=== PATIENT | male | born 1960 | race Caucasian/White ===

== ENCOUNTER 2018-01-11 08:10 | Emergency (ER) | payer OTHER, SELFPAY ==
[2018-01-11] VITALS (7 sets, daily range): BP systolic 116–172; BP diastolic 50–67; PULSE 54–68; RESP 14–18; TEMP 36.4; O2SAT 2–100; BMI 37.3
--- NOTE | 2018-01-11 08:30 | DI.RAD.S_ITS ---
PROCEDURE: XR CHEST 1V INDICATIONS: weakness, chest pain equivalents TECHNIQUE: One view of the chest was acquired. COMPARISON: [facility], CHEST 1 VIEW, 07/03/2014, 8:47. [facility], CHEST 1 VIEW, 01/12/2014, 17:12. [facility], , CHEST 1 VIEW, 10/25/2012, 7:52. FINDINGS: Surgical changes and devices: None. Lungs and pleura: No pleural effusions or pneumothorax. Lungs are clear considering reduced inspiratory volume. Mediastinum: Mediastinal contours appear normal. Heart size is normal. Bones and chest wall: No suspicious bony lesions. Overlying soft tissues appear unremarkable. IMPRESSION: Reduced inspiratory volume, no pneumonia found, source of current symptoms is not identified. Dictated by: Real Cornelius M.D. on 01/11/2018 at 8:45 Approved by: Real Cornelius M.D. on 01/11/2018 at 8:45
[2018-01-11 08:36] LABS: Add Manual Diff / Slide Review NO; Basophils Percent Auto 0.8 % (0-2); Eosinophils Percent Auto 4.9 % (2-4); Hematocrit 41.1 % (41-53); Lymphocytes Percent Auto 18.1 % (25-40); Mean Corpuscular HGB Conc 34.1 % (30-36); Mean Corpuscular Volume 93.7 fL (80-100); Monocytes Percent Auto 6.8 % (3-14); Neutrophils Absolute Auto 5700 /uL (3000-5900); Neutrophils Percent Auto 69.4 % (50-75); Platelet Count 290 X10^3/uL (150-400); Red Blood Cell Count 4.39 X10^6/uL (4.5-5.9); White Blood Cell Count 8.3 X10^3/uL (4.5-11.0)
[2018-01-11 08:44] LABS: Alanine Aminotransferase 23 IU/L (21-72); Albumin 4.7 g/dL (3.5-5.0); Albumin Globulin Ratio 1.3 (1.0-2.8); Alkaline Phosphatase 71 U/L (38-126); Aspartate Aminotransferase 51 IU/L (17-59); BUN Creatinine Ratio 20.8 (6-22); Bilirubin Total 0.7 mg/dL (0.2-1.3); Blood Urea Nitrogen 27 mg/dL (9-20); Calcium 9.9 mg/dL (8.4-10.2); Carbon Dioxide 26 mmol/L (22-32); Chloride 103 mmol/L (98-107); Creatine Kinase 248 U/L (55-170); Estimated Glomerular Filt Rate 56.5 mL/min (>60); Globulin 3.5 g/dL (1.7-4.1); Glucose 129 mg/dL (70-100); Lipase 159 U/L (23-300); Potassium 5.7 mmol/L (3.4-5.1); Sodium 140 mmol/L (137-145); Total Protein 8.2 g/dL (6.3-8.2)
--- NOTE | 2018-01-11 08:50 | ED.DIZZY ---
HPI - Dizziness General Chief Complaint: Dizziness Stated Complaint: Nausea Time Seen by Provider: 01/11/18 08:30 Source: patient Mode of arrival: ambulatory Limitations: no limitations History of Present Illness HPI Narrative: 57-year-old male known well to myself presents to the emergency department with a chief complaint of dizziness, lightheadedness, feeling shaky and nauseated this morning. He denies any chest pain or shortness of breath. He had a dental procedure yesterday and required some anesthesia, antibiotics and pain meds. He denies any other changes in his medication regimen. He felt fine yesterday. MD complaint: dizziness, lightheadedness and near syncope Onset (ago): minute(s) Timing: sudden onset Description: lightheadedness History of similar episodes: Yes History of trauma: No Severity: moderate Relieving factors: nothing Exacerbating factors: nothing Associated symptoms: denies other symptoms Related Data Home Medications Medication Instructions Recorded Confirmed Qvar RediHaler 2 puff INHALATION BID PRN 01/11/18 01/11/18 Zantac 1 tab PO PRN PRN 01/11/18 01/11/18 albuterol sulfate 2 puff INHALATION PRN PRN 01/11/18 01/11/18 ascorbic acid (vitamin C) [Vitamin 1 tab PO BID 01/11/18 01/11/18 C] aspirin 81 mg PO DAILY 01/11/18 01/11/18 diltiazem HCl [Cardizem CD] 180 mg PO BEDTIME 01/11/18 01/11/18 epinephrine [EpiPen] 0.3 ml IM PRN PRN 01/11/18 01/11/18 flecainide 150 mg PO BID 01/11/18 01/11/18 fluticasone [Flonase Allergy 2 spray INTRANASAL DAILY PRN 01/11/18 01/11/18 Relief] hydrochlorothiazide 12.5 mg PO DAILY 01/11/18 01/11/18 lisinopril 20 mg PO BID 01/11/18 01/11/18 lorazepam 1 tab PO PRN PRN 01/11/18 01/11/18 magnesium chloride [Slow-Mag] 1 tab PO BID 01/11/18 01/11/18 multivitamin 1 tab PO DAILY 01/11/18 01/11/18 ondansetron HCl [Zofran] 4 mg PO PRN PRN 01/11/18 01/11/18 potassium chloride 20 meq PO BID 01/11/18 01/11/18 scopolamine base 1 patch TOPICAL PRN PRN 01/11/18 01/11/18 spironolactone 12.5 mg PO DAILY 01/11/18 01/11/18 testosterone [AndroGel] 1 dose TOPICAL Q OTHER DAY 01/11/18 01/11/18 Previous Rx's Medication Instructions Recorded ondansetron [Zofran ODT] 4 mg PO Q6H PRN #14 tab 01/11/18 Allergies Allergy/AdvReac Type Severity Reaction Status Date / Time bee pollen [BEE POLLEN] Allergy Intermediate Unverified 09/07/17 12:12 metoclopramide [From REGLAN] Allergy Unknown Unverified 09/07/17 12:12 prochlorperazine Allergy Unknown Unverified 09/07/17 12:12 [From COMPAZINE] Review of Systems Review of Systems All systems reviewed & are unremarkable except as noted in HPI and below Constitutional Denies chills, Denies fever(s), Denies lethargy and Denies weakness Eyes Denies change in vision, Denies eye discharge, Denies irritation and Denies loss of vision ENT Ears, Nose, Mouth, and Throat: Denies change in voice, Denies neck pain and Denies sore throat Cardiovascular Denies chest pain, Denies irregular heart rhythm, Reports lightheadedness, Denies palpitations, Reports dyspnea, Denies dyspnea on exertion and Denies orthopnea Respiratory Denies cough, Reports dyspnea, Denies dyspnea on exertion and Denies wheezing Gastrointestinal Gastrointestinal: Denies abdominal pain, Denies change in bowel habits, Denies diarrhea, Reports nausea and Denies vomiting Genitourinary Denies hematuria, Denies flank pain, Denies urinary incontinence and Denies urinary urgency Musculoskeletal Denies neck pain Integumentary/Breasts Denies pruritus, Denies erythema, Denies rash and Denies wounds Neurologic Denies confusion, Denies loss of vision and Denies weakness Psychiatric Denies anxiety, Denies confusion, Denies depression, Denies homicidal ideation and Denies suicidal ideation Endocrine Denies palpitations Hematologic/Lymphatic Denies easy bruising Allergic/Immunologic Denies wheezing PFSH Medical History Asthma (Acute) Atrial fibrillation (Acute) HTN (hypertension) (Acute) Osteomyelitis, jaw chronic (Acute) PTSD (post-traumatic stress disorder) (Acute) Social History Smoking Status: Never smoker Exam Narrative Exam Narrative: A 57-year-old obese male obviously feeling on well. He is visibly shaken and mildly diaphoretic, clutching an emesis bag Initial Vital Signs Initial Vital Signs: Vital Signs Temperature 97.6 F 01/11/18 08:30 Pulse Rate 68 01/11/18 08:30 Respiratory Rate 14 01/11/18 08:30 Blood Pressure 172/67 H 01/11/18 08:30 Pulse Oximetry 98 01/11/18 08:30 Const General: cooperative, well developed and acute distress Nutritional Appearance: overweight Orientation: alert, awake, oriented x3 and not confused HENMT Head: normocephalic and atraumatic Ears: external ears normal and TM's normal bilaterally Nose: external nose normal and No nasal discharge Face and sinus: sinuses nontender, face symmetric, no sinus tenderness and No dry mucous membranes Mouth: oral mucosae normal and moist mucous membranes Teeth and gingiva: dentition normal Throat: tonsils normal and uvula midline Eyes General: appearance normal, both eyes and all related structures Eyelids: eyelids normal Conjunctivae: conjunctivae normal Sclera: sclerae normal Pupils: PERRL EOM: EOM intact bilaterally Neck Neck: normal visual inspection, trachea midline, No lymphadenopathy, No midline deformity and No JVD Lymphatic: No lymphedema Chest Chest: normal inspection of the chest Resp Effort & Inspection: normal respiratory effort, able to speak in complete sentences, no respiratory distress and no use of accessory muscles Auscultation: clear to auscultation bilaterally, no rales, no rhonchi and no wheezes Cardio Rate: regular rate Rhythm: regular rhythm Heart Sounds: no click, no gallops, no murmurs and no rubs Pulses: normal peripheral pulses GI Inspection: non-distended Palpation: soft, no hepatosplenomegaly, No guarding, No pulsatile mass and No tender Auscultation: normal bowel sounds Back/Spine/Pelvis Back: No CVA tenderness Cervical Spine: cervical ROM normal and No pain with cervical ROM Thoracic/Lumbar Spine: thoracic and lumbar spine normal to inspection Skin General: no rashes or lesions noted, No jaundice and No petechiae Other: mild diaphoresis Neuro General: alert, oriented x3, gait normal and no focal motor deficits Speech: speech normal Extrem General: full ROM, no clubbing, cyanosis or edema, no pedal edema and no calf tenderness Psych Appearance: well kempt Mental Status: mental status grossly normal Mood: anxious mood Attitude: cooperative Thought Content: normal and suicidality Judgment: judgment good Course Orders Ordered: ED Orders 01/11/18 08:15 Complete Blood Count AUTO DIFF Stat Comprehensive Metabolic Panel Stat Lipase Stat Troponin & CK Cardiac Panel Stat 01/11/18 08:30 XR chest 1V Stat EKG-12 Lead Stat 01/11/18 11:15 Potassium Stat Troponin I Stat Sodium Chloride (Normal Saline 0.9%) 1,000 mls @ 150 mls/hr IV CONT MERLIN Last Admin: 01/11/18 12:06 Dose: 500 mls/hr Infusion: 01/11/18 12:06 Dose: 500 mls/hr Infusion: 01/11/18 11:50 Dose: 500 mls/hr Admin: 01/11/18 09:16 Dose: 150 mls/hr Ondansetron HCl (Zofran) 4 mg IV Q4HR PRN PRN Reason: Nausea And Vomiting Last Admin: 01/11/18 09:16 Dose: 4 mg Discontinued Medications Albuterol (Ventolin) 10 mg INH NOW ONE Stop: 01/11/18 09:41 Last Admin: 01/11/18 09:59 Dose: 10 mg Aspirin (Aspirin Chew) 324 mg PO NOW ONE Stop: 01/11/18 08:31 Last Admin: 01/11/18 09:16 Dose: 324 mg Furosemide (Lasix) 40 mg IV NOW ONE Stop: 01/11/18 09:41 Last Admin: 01/11/18 10:00 Dose: 40 mg Sodium Chloride (Normal Saline 0.9%) 1,000 mls @ 500 mls/hr IV BOLUS ONE Stop: 01/11/18 11:40 Reevaluation(s) Reevaluation #1: Patient feeling tremendous relief and near complete resolution of symptoms after above-stated therapies Vital Signs - 8 hr 01/11/18 08:30 01/11/18 09:59 01/11/18 10:03 Temperature 97.6 F Pulse Rate 68 54 L 54 L Respiratory Rate 14 14 14 Blood Pressure 172/67 H Blood Pressure [Left Arm] Pulse Oximetry 98 94 01/11/18 10:45 01/11/18 11:25 Temperature Pulse Rate 63 65 Respiratory Rate 17 18 Blood Pressure Blood Pressure [Left Arm] 121/57 H 116/53 L Pulse Oximetry 100 90 L MDM - Dizziness Lab Data Result diagrams: 01/11/18 08:15 01/11/18 11:15 Lab Results 01/11/18 01/11/18 01/11/18 Range/Units 08:15 08:15 11:15 WBC 8.3 (4.5-11.0) X10^3/uL RBC 4.39 L (4.5-5.9) X10^6/uL Hgb 14.0 (13.5-17.5) g/dL Hct 41.1 (41-53) % MCV 93.7 (80-100) fL MCH 32.0 (26-34) PG MCHC 34.1 (30-36) % RDW 14.0 (11.6-14.8) % Plt Count 290 (150-400) X10^3/uL Neut % (Auto) 69.4 (50-75) % Lymph % (Auto) 18.1 L (25-40) % [place] % (Auto) 6.8 (3-14) % Eos % (Auto) 4.9 H (2-4) % Baso % (Auto) 0.8 (0-2) % Neut # (Auto) 5700 (6432-2346) /uL Sodium 140 (137-145) mmol/L Potassium 5.7 H 4.8 (3.4-5.1) mmol/L Chloride 103 (98-107) mmol/L Carbon Dioxide 26 (22-32) mmol/L BUN 27 H (9-20) mg/dL Creatinine 1.30 H (0.66-1.25) mg/dL Estimated GFR 56.5 L (>60) mL/min BUN/Creatinine Ratio 20.8 (6-22) Glucose 129 H (70-100) mg/dL Calcium 9.9 (8.4-10.2) mg/dL Total Bilirubin 0.7 (0.2-1.3) mg/dL AST 51 (17-59) IU/L ALT 23 (21-72) IU/L Alkaline Phosphatase 71 (38-126) U/L Total Creatine Kinase 248 H (55-170) U/L CK-MB (CK-2) 2.66 H (<2.37) ng/mL CK-MB (CK-2) Rel Index 1.1 L (1.5-5.0) % Troponin I < 0.012 < 0.012 (0.01-0.034) ng/mL Total Protein 8.2 (6.3-8.2) g/dL Albumin 4.7 (3.5-5.0) g/dL Globulin 3.5 (1.7-4.1) g/dL Albumin/Globulin Ratio 1.3 (1.0-2.8) Lipase 159 (23-300) U/L ECG Data Attestation: I personally reviewed and interpreted this ECG as follows: Prior ECG tracings: not available for review Interpretation: Normal sinus rhythm at 76 without evidence of ectopy. No ST elevations or T-wave inversions MDM Narrative Medical decision making narrative: Patient has normal EKG and multiple troponins which have been normal. Patient feels tremendous improvement after some fluids. Most large in significant causes of the way he was feeling this morning have been effectively ruled out raising the question of the potential of multiple small contributors including recent oral surgery, pain medications, fatigue, dehydration, relative anorexia, and hyperkalemia. Discharge Plan Departure Patient Disposition: Home, Self-Care Clinical Impression: Acute hyperkalemia, Nausea Instructions: DI for Hyperkalemia Activity Restrictions/Additional Instructions: *You have been diagnosed with [ acute hyperkalemia with nausea ] *What to do: *Take medications as directed *Follow up with your primary care provider in 2-3 days, call for an appointment. Let them know you were seen in the Emergency Department and that we ask that you be seen in follow up *Return to ER if you should have any new, worsening or concerning symptoms Prescriptions: New ondansetron [Zofran ODT] 4 mg tablet,disintegrating 4 mg PO Q6H PRN (Reason: nausea and vomiting) Qty: 14 RF: 0 No Action ascorbic acid (vitamin C) [Vitamin C] 1,000 mg Tablet 1 tab PO BID RF: 0 flecainide 150 mg Tablet 150 mg PO BID RF: 0 diltiazem HCl [Cardizem CD] 180 mg Capsule,Extended Release 24hr 180 mg PO BEDTIME RF: 0 lisinopril 20 mg Tablet 20 mg PO BID RF: 0 ondansetron HCl [Zofran] 4 mg Tablet 4 mg PO PRN PRN (Reason: Nausea) RF: 0 aspirin 81 mg Tablet,Delayed Release (Dr/Ec) 81 mg PO DAILY RF: 0 spironolactone 25 mg Tablet 12.5 mg PO DAILY RF: 0 lorazepam 1 mg Tablet 1 tab PO PRN PRN (Reason: Anxiety) RF: 0 epinephrine [EpiPen] 0.3 mg/0.3 mL Auto-Injector 0.3 ml IM PRN PRN (Reason: Allergic Reaction) RF: 0 scopolamine base 1 mg over 3 days Patch 3 Day 1 patch Topical PRN PRN (Reason: Dizziness) RF: 0 albuterol sulfate 90 mcg/actuation Hfa Aerosol Inhaler 2 puff Inhalation PRN PRN (Reason: Shortness Of Breath) RF: 0 fluticasone [Flonase Allergy Relief] 50 mcg/actuation [place],Suspension 2 spray Intranasal DAILY PRN (Reason: Allergy Symptoms) RF: 0 hydrochlorothiazide 12.5 mg Tablet 12.5 mg PO DAILY RF: 0 magnesium chloride [Slow-Mag] 71.5 mg Tablet,Delayed Release (Dr/Ec) 1 tab PO BID RF: 0 testosterone [AndroGel] 20.25 mg/1.25 gram (1.62 %) Gel In Metered-Dose Pump 1 dose Topical Q OTHER DAY RF: 0 potassium chloride 20 mEq Tablet Extended Release 20 meq PO BID RF: 0 Qvar RediHaler 2 puff Inhalation BID PRN (Reason: as directed) RF: 0 Zantac 1 tab PO PRN PRN (Reason: Indigestion) RF: 0 multivitamin 1 tab PO DAILY RF: 0
[2018-01-11 08:56] LABS: Troponin I < 0.012 ng/mL (0.01-0.034)
[2018-01-11 08:59] LABS: CKMB % Relative Index 1.1 % (1.5-5.0); Creatine Kinase MB 2.66 ng/mL (<2.37)
[2018-01-11 09:00] LABS: HEMOLYSIS 118 (0-50)
[2018-01-11] MEDS: SODIUM CHLORIDE 0.9% 1,000 ML 150 ML IV (09:16)
[2018-01-11] MEDS: ONDANSETRON 4 MG/2 ML INJ IV (09:16)
[2018-01-11] MEDS: ASPIRIN 81 MG TAB 324 MG PO (09:16)
[2018-01-11] MEDS: ALBUTEROL 2.5 MG/3 ML NEB (ADULT) 10 MG INH (09:59)
[2018-01-11] MEDS: FUROSEMIDE 40 MG/4 ML VIAL IV (10:00)
[2018-01-11 11:28] LABS: HEMOLYSIS < 15 (0-50); Potassium 4.8 mmol/L (3.4-5.1)
[2018-01-11 11:45] LABS: Troponin I < 0.012 ng/mL (0.01-0.034)
[2018-01-11] MEDS: SODIUM CHLORIDE 0.9% 1,000 ML 500 ML IV (12:06)
--- NOTE | 2018-01-11 12:47 | PC.NURSE ---
1150 pt. O2 sats dropped to 89 when asleep. placed on 2L NC
== END 2018-01-11 13:12 | disposition home or self-care (01) ==
PROVIDERS: Emergency Provider Emergency Medicine; PCP Family Medicine
DX: E87.5 Hyperkalemia (principal); R11.0 Nausea
CPT/HCPCS: 36415; 36591; 71045; 80053; 82550; 82553; 83690; 84132; 84484; 85025; 93005; 93010; 96361; 96374; 96375; 99283; 99285; J1940; J2405; J7613

== ENCOUNTER → 2018-03-09 13:00 | Outpatient (CLI) | payer OTHER, SELFPAY | PROVIDERS: PCP Family Medicine | DX: Z23 Encounter for immunization (principal) | CPT/HCPCS: 90471; 90686 ==

== ENCOUNTER 2018-07-13 08:55 | Emergency (ER) | payer OTHER, SELFPAY ==
[2018-07-13] VITALS (8 sets, daily range): BP systolic 97–165; BP diastolic 55–67; PULSE 50–72; RESP 12–18; TEMP 37.3; O2SAT 92–95; BMI 40.6
--- NOTE | 2018-07-13 09:02 | PC.NURSE ---
pt reports, shortness of breath onset last night, today with a ever on left chest all the way to the back denies nausea or vomiting. now with shortness of breath on exertion.
--- NOTE | 2018-07-13 09:05 | DI.RAD.S_ITS ---
PROCEDURE: XR CHEST 1V INDICATIONS: chest pain TECHNIQUE: One view of the chest was acquired. COMPARISON: [facility], , CHEST 1 VIEW, 07/03/2014, 8:47. [facility], , XR CHEST 1V, 01/11/2018, 8:35. FINDINGS: Surgical changes and devices: None. Lungs and pleura: The left diaphragm is not well-seen, which may be related to an enlarged heart, but is similar to the previous exam. No new area of consolidation is evident. There is no large effusion or pneumothorax. Elevation of the right diaphragm is present. Mediastinum: Mediastinal contours appear normal. Heart size is enlarged. Bones and chest wall: No suspicious bony lesions. Overlying soft tissues appear unremarkable. IMPRESSION: 1. Cardiomegaly without overt heart failure. 2. Increased density at the left lung base probably is related to chronic lung changes and cardiomegaly. No definite pneumonia is evident. Dictated by: Teodoro Borrero M.D. on 07/13/2018 at 8:32 Approved by: Teodoro Borrero M.D. on 07/13/2018 at 8:34
[2018-07-13] MEDS: KETOROLAC 60 MG/2 ML VIAL 15 MG IV (09:10)
[2018-07-13] MEDS: SODIUM CHLORIDE 0.9% 1,000 ML 150 ML IV (09:11)
[2018-07-13 09:12] LABS: Add Manual Diff / Slide Review NO; Basophils Absolute Auto 100 /uL (0-100); Basophils Percent Auto 0.7 % (0-2); Eosinophils Absolute Auto 500 /uL (0-450); Hematocrit 42.6 % (41-53); Hemoglobin 14.2 g/dL (13.5-17.5); Lymphocytes Absolute Auto 2600 /uL (1100-4500); Lymphocytes Percent Auto 33.7 % (25-40); Mean Corpuscular HGB Conc 33.2 % (30-36); Mean Corpuscular Volume 93.3 fL (80-100); Monocytes Absolute Auto 700 /uL (0-900); Monocytes Percent Auto 8.6 % (3-14); Neutrophils Absolute Auto 3800 /uL (1500-7000); Platelet Count 274 X10^3/uL (150-400); Red Blood Cell Count 4.57 X10^6/uL (4.5-5.9); Red Cell Distribution Width 13.4 % (11.6-14.8); White Blood Cell Count 7.7 X10^3/uL (4.5-11.0)
[2018-07-13 09:18] LABS: Alanine Aminotransferase 34 IU/L (21-72); Albumin 4.7 g/dL (3.5-5.0); Albumin Globulin Ratio 1.4 (1.0-2.8); Alkaline Phosphatase 86 U/L (38-126); Aspartate Aminotransferase 51 IU/L (17-59); BUN Creatinine Ratio 17.7 (6-22); Bilirubin Total 0.3 mg/dL (0.2-1.3); Blood Urea Nitrogen 23 mg/dL (9-20); Calcium 10.1 mg/dL (8.4-10.2); Carbon Dioxide 28 mmol/L (22-32); Chloride 101 mmol/L (98-107); Creatine Kinase 435 U/L (55-170); Estimated Glomerular Filt Rate 56.3 mL/min (>60); Globulin 3.4 g/dL (1.7-4.1); Glucose 116 mg/dL (80-110); HEMOLYSIS < 15 (0-50); Lipase 116 U/L (23-300); Sodium 139 mmol/L (137-145); Total Protein 8.1 g/dL (6.3-8.2)
[2018-07-13 09:19] LABS: D Dimer < 200 ng/mL (<230)
--- NOTE | 2018-07-13 09:20 | ED_ITS ---
HPI - Chest Pain General Chief Complaint: Chest Pain Stated Complaint: Chest pain Time Seen by Provider: 07/13/18 08:57 Source: patient Mode of arrival: ambulatory Limitations: no limitations History of Present Illness HPI narrative: 58-year-old male, nonsmoker with extensive cardiac history presents with sharp and stabbing left anterior chest pain that radiates to his back that started today. It is worse with big deep breath and with motion. He denies any recent illness such as runny nose, sneezing or cough. He denies any shortness of breath, fever or chills. He has had no nausea, vomiting or diarrhea. He does feel generally weak and has been worsening over some time. 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 He has no new medications MD complaint: chest pain Onset (ago): hour(s) Duration: intermittent Onset: during rest Pain location: left chest Severity: moderate Quality: sharp Pain radiation: back Relieving factors: rest Exacerbating factors: exertion and inspiration Treatments prior to arrival chest pain: none Related Data Home Medications Medication Instructions Recorded Confirmed Qvar RediHaler 2 puff INHALATION BID PRN 01/11/18 01/11/18 Zantac 1 tab PO PRN PRN 01/11/18 01/11/18 albuterol sulfate 2 puff INHALATION PRN PRN 01/11/18 01/11/18 ascorbic acid (vitamin C) [Vitamin 1 tab PO BID 01/11/18 01/11/18 C] aspirin 81 mg PO DAILY 01/11/18 01/11/18 diltiazem HCl [Cardizem CD] 180 mg PO BEDTIME 01/11/18 01/11/18 epinephrine [EpiPen] 0.3 ml IM PRN PRN 01/11/18 01/11/18 flecainide 150 mg PO BID 01/11/18 01/11/18 fluticasone [Flonase Allergy 2 spray INTRANASAL DAILY PRN 01/11/18 01/11/18 Relief] hydrochlorothiazide 12.5 mg PO DAILY 01/11/18 01/11/18 lisinopril 20 mg PO BID 01/11/18 01/11/18 lorazepam 1 tab PO PRN PRN 01/11/18 01/11/18 magnesium chloride [Slow-Mag] 1 tab PO BID 01/11/18 01/11/18 multivitamin 1 tab PO DAILY 01/11/18 01/11/18 ondansetron HCl [Zofran] 4 mg PO PRN PRN 01/11/18 01/11/18 potassium chloride 20 meq PO BID 01/11/18 01/11/18 scopolamine base 1 patch TOPICAL PRN PRN 01/11/18 01/11/18 spironolactone 12.5 mg PO DAILY 01/11/18 01/11/18 testosterone [AndroGel] 1 dose TOPICAL Q OTHER DAY 01/11/18 01/11/18 Previous Rx's Medication Instructions Recorded ondansetron [Zofran ODT] 4 mg PO Q6H PRN #14 tab 01/11/18 Allergies Allergy/AdvReac Type Severity Reaction Status Date / Time bee pollen [BEE POLLEN] Allergy Intermediate Verified 07/13/18 08:57 metoclopramide [From REGLAN] Allergy Unknown Verified 07/13/18 08:57 prochlorperazine Allergy Unknown Verified 07/13/18 08:57 [From COMPAZINE] Review of Systems Constitutional Denies chills, Denies fever(s), Denies lethargy and Denies weakness Eyes Denies change in vision, Denies eye discharge, Denies irritation and Denies loss of vision ENT Ears, Nose, Mouth, and Throat: Denies change in voice, Denies neck pain and Denies sore throat Cardiovascular Reports chest pain, Denies irregular heart rhythm, Denies lightheadedness, Denies palpitations, Denies dyspnea, Denies dyspnea on exertion and Denies orthopnea Respiratory Denies cough, Reports pain on inspiration, Denies dyspnea, Denies dyspnea on exertion and Denies wheezing Gastrointestinal Gastrointestinal: Denies abdominal pain, Denies change in bowel habits, Denies diarrhea, Denies nausea and Denies vomiting Genitourinary Denies hematuria, Denies flank pain, Denies urinary incontinence and Denies urinary urgency Musculoskeletal Denies neck pain Integumentary/Breasts Denies pruritus, Denies erythema, Denies rash and Denies wounds Neurologic Denies confusion, Denies loss of vision and Denies weakness Psychiatric Denies anxiety, Denies confusion, Denies depression, Denies homicidal ideation and Denies suicidal ideation Endocrine Denies palpitations Hematologic/Lymphatic Denies easy bruising Allergic/Immunologic Denies wheezing PFSH Medical History Asthma (Acute) Atrial fibrillation (Acute) HTN (hypertension) (Acute) Osteomyelitis, jaw chronic (Acute) PTSD (post-traumatic stress disorder) (Acute) Social History Smoking Status: Never smoker Social History Smoking Status: Never smoker Exam Narrative Exam Narrative: GENERAL: 58-year-old male appears younger than stated age, anxious and in mild distress HEAD: Atraumatic. Normocephalic. No temporal or scalp tenderness. EYES: Pupils equal round and reactive. Extraocular motions intact. No scleral icterus. No injection or drainage. ENT: Nose without bleeding, purulent drainage or septal hematoma. Throat without erythema, tonsillar hypertrophy or exudate. Uvula midline. Airway patent. NECK: Trachea midline. No JVD or lymphadenopathy. Supple, nontender, no meninge al signs. CARDIOVASCULAR: Regular rate and rhythm without murmurs, gallops, or rubs. RESPIRATORY: Clear to auscultation. Breath sounds equal bilaterally. No wheezes, rales, or rhonchi. Left anterior chest tender to palpation GASTROINTESTINAL: Abdomen soft, non-tender, nondistended. No hepato-splen omegaly, or palpable masses. No guarding. EXTREMITIES: No clubbing, cyanosis, or edema. No joint tenderness, effusion, or edema noted. BACK: Nontender without deformity or crepitance. No flank tenderness. NEURO: AOx3. SKIN: No rash or erythema. Initial Vital Signs Initial Vital Signs: Vital Signs Pulse Rate 72 07/13/18 08:57 Respiratory Rate 18 07/13/18 08:57 Blood Pressure 165/67 H 07/13/18 08:57 Pulse Oximetry 95 07/13/18 08:57 Course Orders Ordered: Discontinued Medications Sodium Chloride (Normal Saline 0.9%) 1,000 mls @ 150 mls/hr IV CONT MERLIN Last Infusion: 07/13/18 12:23 Dose: 0 mls/hr Admin: 07/13/18 09:11 Dose: 150 mls/hr Ketorolac Tromethamine (Toradol) 15 mg IV NOW ONE Stop: 07/13/18 09:06 Last Admin: 07/13/18 09:10 Dose: 15 mg Vital Signs - 8 hr 07/13/18 08:57 07/13/18 09:00 Temperature 99.2 F Pulse Rate 72 70 Respiratory Rate 18 14 Blood Pressure 165/67 H Blood Pressure [Right Arm] 165/67 H Pulse Oximetry 95 94 MDM - Chest Pain Medical Records Data Attestation: I reviewed the patient's medical records. Lab Data Attestation: I reviewed the patient's lab results. Result diagrams: 07/13/18 08:57 07/13/18 08:57 Lab Results 07/13/18 07/13/18 07/13/18 Range/Units 08:57 08:57 08:57 WBC 7.7 (4.5-11.0) X10^3/uL RBC 4.57 (4.5-5.9) X10^6/uL Hgb 14.2 (13.5-17.5) g/dL Hct 42.6 (41-53) % MCV 93.3 (80-100) fL MCH 31.0 (26-34) PG MCHC 33.2 (30-36) % RDW 13.4 (11.6-14.8) % Plt Count 274 (150-400) X10^3/uL Neut % (Auto) 50.0 (50-75) % Lymph % (Auto) 33.7 (25-40) % [place] % (Auto) 8.6 (3-14) % Eos % (Auto) 7.0 H (2-4) % Baso % (Auto) 0.7 (0-2) % Neut # (Auto) 3800 (0977-4383) /uL Lymph # (Auto) 2600 (1778-8039) /uL [place] # (Auto) 700 (0-900) /uL Eos # (Auto) 500 H (0-450) /uL Baso # (Auto) 100 (0-100) /uL D-Dimer < 200 (<230) ng/mL Sodium 139 (137-145) mmol/L Potassium 5.0 (3.4-5.1) mmol/L Chloride 101 (98-107) mmol/L Carbon Dioxide 28 (22-32) mmol/L BUN 23 H (9-20) mg/dL Creatinine 1.30 H (0.66-1.25) mg/dL Estimated GFR 56.3 L (>60) mL/min BUN/Creatinine Ratio 17.7 (6-22) Glucose 116 H (80-110) mg/dL Calcium 10.1 (8.4-10.2) mg/dL Total Bilirubin 0.3 (0.2-1.3) mg/dL AST 51 (17-59) IU/L ALT 34 (21-72) IU/L Alkaline Phosphatase 86 (38-126) U/L Total Creatine Kinase 435 H (55-170) U/L CK-MB (CK-2) 4.97 H (<2.37) ng/mL CK-MB (CK-2) Rel Index 1.1 L (1.5-5.0) % Troponin I < 0.012 (0.01-0.034) ng/mL Total Protein 8.1 (6.3-8.2) g/dL Albumin 4.7 (3.5-5.0) g/dL Globulin 3.4 (1.7-4.1) g/dL Albumin/Globulin Ratio 1.4 (1.0-2.8) Lipase 116 (23-300) U/L 07/13/18 Range/Units 11:25 WBC (4.5-11.0) X10^3/uL RBC (4.5-5.9) X10^6/uL Hgb (13.5-17.5) g/dL Hct (41-53) % MCV (80-100) fL MCH (26-34) PG MCHC (30-36) % RDW (11.6-14.8) % Plt Count (150-400) X10^3/uL Neut % (Auto) (50-75) % Lymph % (Auto) (25-40) % [place] % (Auto) (3-14) % Eos % (Auto) (2-4) % Baso % (Auto) (0-2) % Neut # (Auto) (3633-7681) /uL Lymph # (Auto) (6403-0544) /uL [place] # (Auto) (0-900) /uL Eos # (Auto) (0-450) /uL Baso # (Auto) (0-100) /uL D-Dimer (<230) ng/mL Sodium (137-145) mmol/L Potassium (3.4-5.1) mmol/L Chloride (98-107) mmol/L Carbon Dioxide (22-32) mmol/L BUN (9-20) mg/dL Creatinine (0.66-1.25) mg/dL Estimated GFR (>60) mL/min BUN/Creatinine Ratio (6-22) Glucose (80-110) mg/dL Calcium (8.4-10.2) mg/dL Total Bilirubin (0.2-1.3) mg/dL AST (17-59) IU/L ALT (21-72) IU/L Alkaline Phosphatase (38-126) U/L Total Creatine Kinase (55-170) U/L CK-MB (CK-2) (<2.37) ng/mL CK-MB (CK-2) Rel Index (1.5-5.0) % Troponin I < 0.012 (0.01-0.034) ng/mL Total Protein (6.3-8.2) g/dL Albumin (3.5-5.0) g/dL Globulin (1.7-4.1) g/dL Albumin/Globulin Ratio (1.0-2.8) Lipase (23-300) U/L Imaging Data Chest x-ray: Radiologist's impression: [address] [address] XRay Report Signed Patient: Teofilo Rogers EMR#: [id number] : 8Acct:[id number] Age/Sex: 58 / MDate of Service: 07/13/18 Loc: ED Accession Number: [id number] Procedure: XR chest 1V Ordering Provider: Homero Fang D.O. PROCEDURE: XR CHEST 1V INDICATIONS: chest pain TECHNIQUE: One view of the chest was acquired. COMPARISON: [facility], [place], CHEST 1 VIEW, 07/03/2014, 8:47. [facility], [place], XR CHEST 1V, 01/11/2018, 8:35. FINDINGS: Surgical changes and devices: None. Lungs and pleura: The left diaphragm is not well-seen, which may be related to an enlarged heart, but is similar to the previous exam. No new area of consolidation is evident. There is no large effusion or pneumothorax. Elevation of the right diaphragm is present. Mediastinum: Mediastinal contours appear normal. Heart size is enlarged. Bones and chest wall: No suspicious bony lesions. Overlying soft tissues appear unremarkable. IMPRESSION: 1. Cardiomegaly without overt heart failure. 2. Increased density at the left lung base probably is related to chronic lung changes and cardiomegaly. No definite pneumonia is evident. Dictated by: Teodoro Borrero M.D. on 07/13/2018 at 8:32 Approved by: Teodoro Borrero M.D. on 07/13/2018 at 8:34 ECG Data Attestation: I personally reviewed and interpreted this ECG as follows: Prior ECG tracings: available for review Interpretation: EKG is normal sinus rhythm rate [69 ] and free of any signs of ischemia or ectopy. No ST segmental elevation or depression. No T wave inversions MDM Narrative Medical decision making narrative: Multiple etiologies for patient's symptoms considered including: [ myocardial infarction, pulmonary embolism, costochondritis, pneumothorax, pneumonia versus other] Patient's symptoms improved or duration of stay with above-stated therapies. Findings and discharge diagnosis discussed with patient/family followed by verbalization of understanding Return precautions discussed with patient/family whom verbalize understanding. Discharge Plan Departure Patient Disposition: Home Clinical Impression: Atypical chest pain, Anterior pleuritic pain Discharge Date/Time: 07/13/18 12:24 Interventions: ED Discharge Assessment Last Done: 07/13/18 12:23 Instructions: DI for Atypical Chest Pain Activity Restrictions/Additional Instructions: *You have been diagnosed with [ atypical chest pain] *What to do: *Take medications as directed *Follow up with your primary care provider in 2-3 days, call for an appointment. Let them know you were seen in the Emergency Department and that we ask that you be seen in follow up *Return to ER if you should have any new, worsening or concerning symptoms Prescriptions: No Action ascorbic acid (vitamin C) [Vitamin C] 1,000 mg Tablet 1 tab PO BID RF: 0 flecainide 150 mg Tablet 150 mg PO BID RF: 0 diltiazem HCl [Cardizem CD] 180 mg Capsule,Extended Release 24hr 180 mg PO BEDTIME RF: 0 lisinopril 20 mg Tablet 20 mg PO BID RF: 0 ondansetron HCl [Zofran] 4 mg Tablet 4 mg PO PRN PRN (Reason: Nausea) RF: 0 aspirin 81 mg Tablet,Delayed Release (Dr/Ec) 81 mg PO DAILY RF: 0 spironolactone 25 mg Tablet 12.5 mg PO DAILY RF: 0 lorazepam 1 mg Tablet 1 tab PO PRN PRN (Reason: Anxiety) RF: 0 epinephrine [EpiPen] 0.3 mg/0.3 mL Auto-Injector 0.3 ml IM PRN PRN (Reason: Allergic Reaction) RF: 0 scopolamine base 1 mg over 3 days Patch 3 Day 1 patch Topical PRN PRN (Reason: Dizziness) RF: 0 albuterol sulfate 90 mcg/actuation Hfa Aerosol Inhaler 2 puff Inhalation PRN PRN (Reason: Shortness Of Breath) RF: 0 fluticasone [Flonase Allergy Relief] 50 mcg/actuation Pease,Suspension 2 spray Intranasal DAILY PRN (Reason: Allergy Symptoms) RF: 0 hydrochlorothiazide 12.5 mg Tablet 12.5 mg PO DAILY RF: 0 magnesium chloride [Slow-Mag] 71.5 mg Tablet,Delayed Release (Dr/Ec) 1 tab PO BID RF: 0 testosterone [AndroGel] 20.25 mg/1.25 gram (1.62 %) Gel In Metered-Dose Pump 1 dose Topical Q OTHER DAY RF: 0 potassium chloride 20 mEq Tablet Extended Release 20 meq PO BID RF: 0 Qvar RediHaler 2 puff Inhalation BID PRN (Reason: as directed) RF: 0 Zantac 1 tab PO PRN PRN (Reason: Indigestion) RF: 0 multivitamin 1 tab PO DAILY RF: 0 ondansetron [Zofran ODT] 4 mg tablet,disintegrating 4 mg PO Q6H PRN (Reason: nausea and vomiting) Qty: 14 RF: 0 Referrals: Darryl Newell MD [Primary Care Provider] -
[2018-07-13 09:30] LABS: Troponin I < 0.012 ng/mL (0.01-0.034)
[2018-07-13 09:34] LABS: CKMB % Relative Index 1.1 % (1.5-5.0); Creatine Kinase MB 4.97 ng/mL (<2.37)
[2018-07-13 11:59] LABS: Troponin I < 0.012 ng/mL (0.01-0.034)
== END 2018-07-13 12:24 | disposition home or self-care (01) ==
PROVIDERS: Emergency Provider Emergency Medicine; PCP Family Medicine
DX: R07.89 Other chest pain (principal)
CPT/HCPCS: 36415; 36591; 71045; 80053; 82550; 82553; 83690; 84484; 85025; 85379; 93005; 93041; 96361; 96374; 99285; J1885

== ENCOUNTER → 2019-03-08 18:25 | Outpatient (CLI) | payer OTHER, SELFPAY | PROVIDERS: PCP Family Medicine | DX: Z23 Encounter for immunization (principal) | CPT/HCPCS: 90471; 90686 ==

== ENCOUNTER → 2020-09-03 12:49 | Outpatient (CLI) | payer OTHER, SELFPAY ==
[2020-09-03] MEDS: COVID-19 VACC #1, MRNA(MOD) 100 MCG/0.5 ML VIAL IM (12:57)
== END ==
PROVIDERS: PCP Family Medicine; Visit Provider Internal Medicine
DX: Z23 Encounter for immunization (principal)
CPT/HCPCS: 0011A; 91301

== ENCOUNTER → 2020-10-02 09:47 | Outpatient (CLI) | payer OTHER, SELFPAY ==
[2020-10-02] MEDS: COVID-19 VACC #2, MRNA(MOD) 100 MCG/0.5 ML VIAL IM (09:57)
== END ==
PROVIDERS: PCP Family Medicine; Visit Provider Internal Medicine
DX: Z23 Encounter for immunization (principal)
CPT/HCPCS: 0012A; 91301